=== PATIENT | female | born 1990 | race African-American/Black ===

== ENCOUNTER 2021-07-26 19:45 | Emergency (ER) | payer MEDICAID, OTHER ==
[~2021-07-26] VITALS: Ht 170.2 cm; Wt 100.7 kg
--- NOTE | 2021-07-26 19:50 | NUR ---
BIBS. L FACIAL DROOP - L EYE AND L MOUTH LKWT 1600 07/25/21. PLACED COMFORTABLY IN BED. VITALS CHECKED.
[2021-07-26] MEDS ORDERED: PRED50TA PO (20:01)
--- NOTE | 2021-07-26 20:05 | NUR ---
PATIENT SEEN BY DR GARZA AT BEDSIDE
--- NOTE | 2021-07-26 20:19 | NUR ---
Patient discharged to home in stable condition. Written and verbal after care instructions given. Patient verbalizes understanding of instruction.
[2021-07-26 20:20] VITALS: BP 156/86
== END 2021-07-26 20:20 | disposition home or self-care (01) ==
LOC: ER 19:49
DX: G51.0 Bell's palsy (principal); Z79.52 Long term (current) use of systemic steroids